=== PATIENT | female | born 1995 | race Two or more races ===

== ENCOUNTER 2025-03-13 07:12 | Inpatient (IN) ==
--- NOTE | 2025-03-02 12:44 | Anesthesiology Consultation ---
Date of Service March 02, 2025 Assessment & Plan (1) Encounter for pre-operative examination: Chart Review Chart Review: entry level civil engineer initiated - Per PAT nursing interview- patient is requesting toddler stay in the hospital as they do not have childcare- will leave to OB and OB floor discretion (both [facility] OB office and OB floor nurses were informed) -Infectious Disease screening: Per PAT nursing assessment on 03/02/25. No known infectious disease contacts in past 10 days or current infectious disease symptoms. No recent travel outside the country. History Surgery Operation Date: 03/13/25 07:30 Proposed Procedures p Section (Delivery of Baby Through Abdominal Incision) - Cristina Meier MD, FACOG Height/Weight Height: 4 ft 11 in Weight: 58.831 kg Allergies Allergy/AdvReac Type Severity Reaction Status Date / Time No Known Allergies Allergy Verified 03/02/25 11:52 Medications Home Medications Medication Instructions Recorded Confirmed Last Taken vitamin with calcium 1 tab PO DAILY #90 tabs 01/05/25 03/02/25 Unknown no.72-iron 27 mg-folic acid 1 mg tablet ( Plus (calcium carbonate)) Past Medical History Medical History History of chicken pox (2006) Vegan diet no meat products Past Family History Family History Other No family history of adverse response to anesthesia Denies family history of Ovarian cancer Breast cancer Colorectal cancer Past Surgical History Surgical History S/P appendectomy S/P section x1 Social History Smoking Status: Never smoker Do You Dip or Chew Tobacco: No Hx Alcohol Use: No Hx Substance Use: No substance use type: does not use
--- NOTE | 2025-03-12 16:54 | History & Physical Report ---
Date of Service March 12, 2025 Assessment & Plan (1) growth restriction: Plan: IUP at 37 3/7weeks who meets criteria for IUGR presents for repeat LTCS the procedure and it's risks were reviewed with the patient and all questions answered to their satisfaction had concerns about anesthesia problems during last delivery. she had epidural and then spinal but neither were effective to do so they gave her ketamine. she will discuss further with anesthesiologist on day of . History of Present Illness Primary Care Provider: NO PCP Patient is a female EDC 03/29/25 who presents at 37 3/7 weeks for repeat LTCS because of IUGR. testing has been reassuring. prior LTCS as done for failure to progress. GBS -negative Allergies Allergy/AdvReac Type Severity Reaction Status Date / Time No Known Allergies Allergy Verified 03/12/25 11:43 Home Medications Medication Instructions Recorded Confirmed Type vitamin with calcium 1 tab PO DAILY #90 tabs 01/05/25 03/12/25 Rx no.72-iron 27 mg-folic acid 1 mg tablet ( Plus (calcium carbonate)) Patient History Medical History History of chicken pox (2006) Vegan diet no meat products Surgical History S/P appendectomy S/P section x1 Family History Other No family history of adverse response to anesthesia Denies family history of Ovarian cancer Breast cancer Colorectal cancer Social History Smoking Status: Never smoker Second Hand Exposure: No; Do You Dip or Chew Tobacco: No; Hx Alcohol Use: No Hx Substance Use: No Preferred Language: Greenlandic Communication Ability: Effective 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 marital status: marital status details: (27) Current Living Situation: Family and Significant Other Current Living Situation Comment: Lives with and daughter current occupational status: unemployed current occupation: Homemaker How many Children do You have: 1 Feels Safe at Home: Yes Assistive Devices: None Review of Systems All systems reviewed & are unremarkable except as noted in HPI & below Physical Exam Constitutional: WD/WN, vitals as above Respiratory: normal respiratory effort, lungs clear to auscultation Cardiovascular: RRR, no murmur, no edema Psychiatric: A+Ox3, euthymic affect Genitourinary: OB Exam Abdomen: + fundal height (36), + vertex and + irregular contractions OB Exam Monitor Tracing: + external FHT monitor used, + external uterine monitor used, + category I and + normal FHT variability Coding Level of Care Code 11347 INT INP/OBS CARE 40MIN Diagnoses growth restriction
[2025-03-13] MEDS ORDERED: LACTATED RINGER'S 1,000 ML IV SCH ×3 (07:30→12:00)
[2025-03-13 07:50] LABS: Hematocrit (blood only) 37.7 % (37.0-47.0); Hemoglobin 13.2 g/dl (12.0-16.0); Mean Corpuscular Hemoglobin 30.7 pg (25.0-34.0); Mean Corpuscular Volume 87.7 fL (80.0-100.0); Mean Platelet Volume 11.7 fL (9.4-12.4); Platelet Count 232 K/uL (130-400); RDW Coefficient of Variation 14.2 % (11.5-14.5); White Blood Count 15.62 K/ul (4.8-10.8)
[2025-03-13] MEDS ORDERED: DEXAMETHASONE SOD INJ 4 MG/ML VIAL ONE (08:07)
[2025-03-13] MEDS ORDERED: fentaNYL citrate PF 100 MCG/2 ML VIAL ONE (08:07)
[2025-03-13] MEDS ORDERED: MoRPHine SULFATE PF 1 MG/ML 10 ML AMP/VIAL ONE (08:07)
[2025-03-13] MEDS ORDERED: ONDANSETRON INJ 2 MG/ML 2 ML VIAL ONE (08:07)
[2025-03-13] MEDS ORDERED: OXYTOCIN 10 UNITS/ML VIAL ONE (08:07)
[2025-03-13] MEDS ORDERED: PHENYLEPHRINE HCL 25 MG/250 ML NSS IV ONE (08:07)
[2025-03-13] MEDS: LACTATED RINGER'S 1,000 ML IV SCH (08:45)
[2025-03-13] MEDS: ACETAMINOPHEN 500 MG TAB PO SCH (08:46)
--- NOTE | 2025-03-13 09:17 | History & Physical Bridge Note ---
Date of Service March 13, 2025 History & Physical Bridge Note I have examined the patient, reviewed the History & Physical and in the interval since the performance of the History & Physical I have noted the following changes of clinical significance: no changes noted
--- NOTE | 2025-03-13 09:17 | Post Operative Brief Note ---
Immediate Post Op Note Date of Surgery March 13, 2025 Pre & Post Diagnosis Operation Date: 03/13/25 Pre-OP Dx: IUP at 37 4/7 weeks, IUGR, prior LTCS Post-Op Dx: same plus delivery of viable girl I identified the patient and participated in the time-out.: Yes Procedure Repeat Low transverse section Operation Date: 03/13/25 09:05 <No data on this case meets the specified criteria> Surgeon Cristina Meier MD, FACOG Wire Frame Maker Tricia Ptety RN Quantitative Blood Loss (QBL) 227 Findings Consistent with Post-Op Diagnosis gravid uterus , normal tubes and ovaries bilaterally Specimens Specimen Description: placenta to hold Drains Wick Catheter Anesthesia Type Spinal Complications none Disposition Accompanied Patient To Recovery: Yes Disposition: L&D
[2025-03-13] MEDS: CITRIC ACID/SODIUM CITRATE 15 ML UDC PO SCH (10:01)
[2025-03-13] MEDS: ceFAZolin 2,000 MG in SYRINGE 0 ML IV SCH (10:01)
[2025-03-13] MEDS ORDERED: NALOXONE HCL 0.08 MG in SYRINGE 1.8 ML IV PRN (10:03)
[2025-03-13] MEDS ORDERED: NALBUPHINE HCL INJ 10 MG/ML AMP IV PRN (10:03)
[2025-03-13] MEDS ORDERED: NALOXONE HCL 0.4 MG/1 ML VIAL/CARP IV PRN (10:03)
[2025-03-13] MEDS ORDERED: LACTATED RINGER'S 500 ML IV PRN (10:03)
[2025-03-13] MEDS ORDERED: PROMETHAZINE 6.25 MG/50.25 ML BAG IV PRN (10:03)
[2025-03-13] MEDS ORDERED: NALOXONE HCL 1 MG in SODIUM CHLORIDE 0.9% 1,000 ML IV PRN (10:03)
[2025-03-13] MEDS ORDERED: diphenhydrAMINE 50 MG/ML VIAL IV PRN (10:03)
[2025-03-13] MEDS ORDERED: ePHEDrine sulfate 50 MG/ML AMP IV PRN (10:03)
[2025-03-13] MEDS ORDERED: MoRPHine SULFATE PF 1 MG/ML 10 ML AMP/VIAL INT SPINAL ONE (10:03)
[2025-03-13] MEDS ORDERED: HYDROmorphone INJ 0.5 MG/0.5 ML SYR IV PRN (10:03)
[2025-03-13] MEDS ORDERED: SODIUM CHLORIDE 0.9% 1,000 ML IV SCH (10:15)
[2025-03-13] MEDS ORDERED: DC INTRASPINAL MORPHINE SCH (10:15)
[2025-03-13] MEDS ORDERED: NO NARCOTICS OR SEDATIVES SCH (10:15)
[2025-03-13] MEDS: KETOROLAC 30 MG/ML VIAL ONE (11:44)
[2025-03-13] MEDS ORDERED: CALCIUM CARBONATE 500 MG CHEWABLE TAB PO PRN (11:57)
[2025-03-13] MEDS ORDERED: MAGNESIUM HYDROXIDE SUSP 30 ML UDC PO PRN (11:57)
[2025-03-13] MEDS ORDERED: BENZOCAINE 20% SPRY 85 APPLN/85 GM CAN EXT PRN (11:57)
[2025-03-13] MEDS ORDERED: SENNA 8.6 MG TAB PO PRN (11:57)
[2025-03-13] MEDS ORDERED: HYDROCORTISONE ACETATE 25 MG SUPP PR PRN (11:57)
[2025-03-13] MEDS ORDERED: DIPHTHER/TETAN/PERTUS Vaccine (Tdap, Adol/Adult) 0.5mL IM ONE (11:57)
[2025-03-13] MEDS ORDERED: KETOROLAC 30 MG/ML VIAL IV SCH (12:00)
--- NOTE | 2025-03-13 12:01 | Anesthesiology Progress Note ---
Date of Service March 13, 2025 Anesthesia Post Procedure Vital Signs Vital Signs: Temp Pulse Resp BP Pulse Ox O2 Del Method 03/13/25 11:59 90 100 03/13/25 11:54 94 H 100 03/13/25 11:50 94 H 18 100 03/13/25 11:50 82 105/56 L 03/13/25 11:49 86 100 03/13/25 11:44 82 100 03/13/25 11:40 94 H 20 100 03/13/25 11:40 70 106/59 L 03/13/25 11:39 74 100 03/13/25 11:34 78 100 03/13/25 11:30 36.4 C L 20 Room Air 03/13/25 11:29 83 111/60 100 03/13/25 07:30 36.8 C 20 03/13/25 07:29 20 03/13/25 07:29 36.6 C 20 03/13/25 07:28 98 H 105/60 Pain Intensity Right Abdomen: Pain Intensity: 1 Transfer of Care Handoff Completed per policy Notes Mental Status: alert / awake / arousable and participated in evaluation Patient Amnestic to Procedure: Yes Nausea / Vomiting: adequately controlled Pain: adequately controlled Airway Patency, RR, SpO2: stable & adequate BP & HR: stable & adequate Hydration State: stable & adequate Neuraxial Anesthesia: was administered and sensory block is resolving Anesthetic Complications: no major complications apparent and Pt Satisfied with anesthetic care
[2025-03-13] MEDS: OXYTOCIN 20 UNITS/LR 1,002 ML IV SCH (12:10)
[2025-03-13] MEDS: MoRPHine SULFATE 2 MG/ML CARP IV PRN (13:27)
[2025-03-13] MEDS: SIMETHICONE 80 MG CHEW PO SCH (13:28)
--- NOTE | 2025-03-13 16:45 | Operative Report ---
Post Operative Report Pre & Post Diagnosis Operation Date: 03/13/25 09:05 Pre-Op Diagnosis: 1. Term 2. Previous c/section 3. Desires repeat Post-Op Diagnosis: Same I identified the patient and participated in the time-out.: Yes Procedure Operation Date: 03/13/25 09:05 Actual Procedures p Section with the of a live female child at 1044. - Cristina Meier MD, FACOG Surgeon Cristina Meier MD, FACOG Co Founder And Chairman Tricia Petty RN Quantitative Blood Loss (QBL) 227 Findings Consistent with Post-Op Diagnosis Uterus is gravid and consistent with a term in size. Bilateral ovaries and fallopian tubes are grossly normal Specimens placenta to hold Drains Wick catheter to straight drainage, clear urine at the end of the case. Anesthesia Type Spinal Complications none Disposition Accompanied Patient To Recovery: Yes Disposition: L&D Indications Patient is a 29-year-old 2 para 1-0-0-1 female EDC 03/30/[birth year]25 who presents at 37-4/7 weeks for repeat section because of severe IUGR. testing otherwise has been reassuring. Prior section was done because of failure to progress. Description of Procedure After the patient received adequate subarachnoid block she was prepped and draped in usual sterile fashion. A low transverse skin incision was made through her prior scar and carried to fascia with the same scalpel. The fascial incision was then extended with Elizabeth scissors, the edges were then grasped with Kristy clamps and the underlying rectus muscles bluntly sharply dissected off of the overlying fascia. The peritoneum was then entered bluntly. The bladder was then taken down off the anterior surface of the uterus and placed behind the bladder blade. The lower uterine segment was entered with a scalpel and extended transversely by stretching the incision in an a caudad and cephalad direction. The was delivered from the vertex presentation after rupturing membranes for clear fluid. This was complex with moderate fundal pressure. After the head was delivered the rest of the infant delivered easily. She was vigorous crying and moving all 4 limbs. Cord was clamped and cut. The was then handed off to Dr. Werner he was in attendance as the assembler leather goods. The placenta was then manually extracted. The uterine cavity was cleared of some retained membranes particularly in the fundus of the uterus. A final sweep of the uterine cavity revealed no further remaining tissue. The uterus was then closed in 2 layers in a running locking imbricating fashion with 0 Monocryl. Hemostasis was noted to be excellent. The posterior cul-de-sac was suctioned for small amount of fluid. The uterine incision was examined once more and continue to have excellent hemostasis. The uterus was then placed back inside the abdominal cavity. The gutters were examined and found to be free of any clot or fluid. A clot was removed from the anterior cul-de-sac. The uterine incision continued to have excellent hemostasis. The rectus muscle were brought together in the midline with individual stitches of 0 Monocryl. Fascia was closed in a running fashion with 0 Vicryl. After irrigating the subcutaneous layer, the skin edges were reapproximated with a subcuticular stitch of 4-0 Vicryl. Patient tolerated the procedure well was stable arrival in labor and delivery. I attest to the content of the Intraoperative Record and any orders documented therein. Any exceptions are noted below. OB Procedure Charges [id number]
[2025-03-13] MEDS: ONDANSETRON INJ 2 MG/ML 2 ML VIAL IV PRN (18:09)
[2025-03-13] MEDS: KETOROLAC 30 MG/ML VIAL IV SCH (18:47)
[2025-03-13] MEDS: LACTATED RINGER'S 500 ML IV ONE (18:48)
[2025-03-13] MEDS: ACETAMINOPHEN 325 MG TAB PO SCH (18:48)
[2025-03-13] MEDS: DOCUSATE SODIUM 100 MG CAP PO SCH (20:42)
[2025-03-14] MEDS ORDERED: diphenhydrAMINE Capsule 25 MG CAP PO PRN (04:04)
[2025-03-14] MEDS ORDERED: PROMETHAZINE 12.5 MG/50.5 ML BAG IV PRN (04:04)
[2025-03-14] MEDS ORDERED: diphenhydrAMINE 50 MG/ML VIAL IV PRN (04:04)
[2025-03-14] MEDS ORDERED: HYDROmorphone INJ 0.5 MG/0.5 ML SYR IV PRN (04:04)
[2025-03-14] MEDS ORDERED: ONDANSETRON INJ 2 MG/ML 2 ML VIAL IV PRN (04:04)
[2025-03-14] MEDS ORDERED: CITRIC ACID/SODIUM CITRATE 15 ML UDC PO SCH (06:00)
--- NOTE | 2025-03-14 07:09 | Obstetrical Progress Note ---
Date of Service March 14, 2025 Assessment & Plan (1) Encounter for assessment: Plan: Patient is POD 1 s/p rLTCS and doing well - Eating well, voiding well, ambulating well - vitals reviewed and within normal limits - pain well controlled with analgesics - OOB, ambulation, diet progression as tolerated - Blood type: A+, GBS neg, rubella immune - Plan to discharge tomorrow - After discharge, 6 week follow up with [facility] Admission and Anticipated Discharge Date Admission Date: March 13, 2025 Supervising Physician Co-Signing Physician Notes Resident Physician Supervision Note: I interviewed and examined the patient. Discussed with Dr. Huffman and agree with findings and plan as documented in the note. Any exceptions or clarifications are listed here: [None] Documented By: Cristina Meier MD, FACOG Subjective 29 yo post-operative day 1 s/p rLTCS Ambulation: ambulating normally Voiding: no voiding problems Passing Gas:: Yes Diet Tolerance:: regular diet Lochia:: Small Feeding Type:: breast feeding Current Pain Level: 5.5/10 Resting comfortably this AM in NAD. Denies NEVES, CP, SOB, N/V/D, LE pain/swelling. Physical Exam Physical Exam: General: patient resting comfortably, NAD, non-toxic in appearance, answers questions appropriately. Skin: warm, dry, intact HEENT: NC/AT, anicteric sclera, conjunctiva without injection, moist mucus membranes. Heart: +S1/S2, regular, no m/r/g Lungs: equal air entry bilaterally, no rales/rhonchi/wheezes Abd: +BS, soft, NT/ND, uterine fundus firm at umbilicus, caesarean incision C/D/I. Ext: warm, no clubbing/cyanosis or edema, Jaswinder's neg. Neuro: nonfocal, speech intact, no facial droop, moving all extremities. Results & Data Vital Signs (Past 12 Hours) Vital Signs Temp Pulse Pulse Resp BP Pulse Ox O2 Del Method 03/14/25 04:00 36.9 C 88 18 92/56 L 99 Room Air 03/14/25 03:27 18 97 03/14/25 02:04 18 97 03/14/25 01:16 16 97 03/14/25 00:45 18 98 03/13/25 23:50 36.9 C 88 18 96/58 L 99 Room Air 03/13/25 22:00 16 98 03/13/25 21:15 18 99 03/13/25 19:55 Room Air 03/13/25 19:55 37 C 74 18 104/66 99 Room Air Resident Activity Tracking Resident Involvement: Resident Care Provided Care Provided: OB Delivery
[2025-03-14 07:25] LABS: Basophils # (auto) 0.05 K/uL (0.00-0.20); Basophils % (auto) 0.3 %; Eosinophils # (auto) 0.13 K/uL (0.00-0.50); Eosinophils % (auto) 0.7 %; Hematocrit (blood only) 32.2 % (37.0-47.0); Hemoglobin 11.1 g/dl (12.0-16.0); Immature Granulocytes # (auto) 0.15 K/uL (0.01-0.20); Immature Granulocytes % (auto) 0.8 %; Lymphocytes # (auto) 2.91 K/uL (1.20-3.40); Lymphocytes % (auto) 15.6 %; Mean Corpuscular Hemoglobin 30.9 pg (25.0-34.0); Mean Corpuscular Hgb Conc 34.5 g/dL (32.0-36.0); Mean Corpuscular Volume 89.7 fL (80.0-100.0); Mean Platelet Volume 11.7 fL (9.4-12.4); Monocytes # (auto) 1.58 K/uL (0.11-0.59); Monocytes % (auto) 8.5 %; Neutrophils % (auto) 74.1 %; Platelet Count 223 K/uL (130-400); RDW Coefficient of Variation 13.8 % (11.5-14.5); RDW Standard Deviation 45.1 fL (36.4-46.3); Red Blood Count 3.59 M/uL (4.20-5.40); White Blood Count 18.62 K/ul (4.8-10.8)
[2025-03-14] MEDS: PRENATAL VITAMIN 1 TAB PO SCH (09:10)
[2025-03-14] MEDS: FERROUS SULFATE 325 MG TAB PO SCH (09:11)
[2025-03-14] MEDS: oxyCODONE HCL IR 5 MG TAB (IMMEDIATE RELEASE) PO PRN (10:41)
[2025-03-14] MEDS ORDERED: KETOROLAC 30 MG/ML VIAL IV PRN (11:57)
[2025-03-14] MEDS: IBUPROFEN 600 MG TAB PO SCH (13:04)
[2025-03-14] MEDS: bisacodyL 5 MG TABEC PO SCH (19:59)
[2025-03-15 07:15] LABS: Hematocrit (blood only) 35.1 % (37.0-47.0); Hemoglobin 11.8 g/dl (12.0-16.0)
--- NOTE | 2025-03-15 07:47 | Obstetrical Progress Note ---
Date of Service March 15, 2025 Assessment & Plan (1) Encounter for assessment: 29 [facility] -Meeting all pp milestones. notes some pain control issues overnight but currently managed. -Rh+/rubella immune/ -f/u 6 weeks for appt. Plan to dc tomorrow for pain control but says if feels well, would consider dc tlater today Subjective Ambulation: ambulating normally Voiding: no voiding problems Passing Gas:: Yes Diet Tolerance:: regular diet Lochia:: Small Feeding Type:: breast feeding Had a little more pain this AM and got meds which helped Review of Systems Denies fevers, chills, n/v, NEVES, CP, SOB Physical Exam Constitutional WD/WN, vitals as above no acute distress Respiratory normal respiratory effort, lungs clear to auscultation Cardiovascular RRR, no murmur, no edema Gastrointestinal (Abdomen) Percussion/Palpation: abdomen soft; abdomen nontender fundus firm at umbilicus and NT, incision c/d/i Musculoskeletal BLE symmetric, nonerythematous, nontender Results & Data Vital Signs (Past 12 Hours) Vital Signs Temp Pulse Pulse Resp BP Pulse Ox O2 Del Method 03/15/25 00:35 97.7 F 86 18 107/75 96 Room Air 03/14/25 20:00 97.5 F L 92 H 18 100/66 97 Room Air
[2025-03-15] MEDS: IBUPROFEN 600 MG TAB PO PRN (11:56)
[2025-03-15] MEDS ORDERED: bisacodyL 10 MG SUPP PR PRN (11:57)
[2025-03-15] MEDS: ACETAMINOPHEN 325 MG TAB PO PRN (17:09)
--- NOTE | 2025-03-16 06:54 | Obstetrical Progress Note ---
Date of Service March 16, 2025 Assessment & Plan (1) Encounter for assessment: Plan: Patient is POD 3 s/p rLTCS and doing well - Eating well, voiding well, ambulating well - vitals reviewed and within normal limits - pain well controlled with analgesics - OOB, ambulation, diet progression as tolerated - Blood type: A+, GBS neg, rubella immune - Plan to discharge today - After discharge, 6 week follow up with [facility] Admission and Anticipated Discharge Date Admission Date: March 13, 2025 Supervising Physician Co-Signing Physician Notes Resident Physician Supervision Note: I interviewed and examined the patient. Discussed with Dr. Huffman and agree with findings and plan as documented in the note. Any exceptions or clarifications are listed here: POD3 s/p rLTCS, doing well. DC home Documented By: Kellie Zamora MD Subjective 29 yo post-operative day 3 s/p rLTCS Ambulation: ambulating normally Voiding: no voiding problems Passing Gas:: Yes Diet Tolerance:: regular diet Lochia:: Small Feeding Type:: breast feeding Current Pain Level: 3/10 Resting comfortably this AM in NAD. Denies NEVES, CP, SOB, N/V/D, LE pain/swelling. Physical Exam Physical Exam: General: patient resting comfortably, NAD, non-toxic in appearance, answers questions appropriately. Skin: warm, dry, intact HEENT: NC/AT, anicteric sclera, conjunctiva without injection, moist mucus membranes. Heart: +S1/S2, regular, no m/r/g Lungs: equal air entry bilaterally, no rales/rhonchi/wheezes Abd: +BS, soft, NT/ND, uterine fundus firm at umbilicus, caesarean incision alea n w/o erythema or discharge Ext: warm, no clubbing/cyanosis or edema, Jaswinder's neg. Neuro: nonfocal, speech intact, no facial droop, moving all extremities. Results & Data Vital Signs (Past 12 Hours) Vital Signs Temp Pulse Pulse Resp BP Pulse Ox O2 Del Method 03/16/25 02:10 36.8 C 96 H 18 112/76 95 Room Air 03/15/25 20:00 36.8 C 98 H 18 108/76 97 Room Air Resident Activity Tracking Resident Involvement: Resident Care Provided Care Provided: OB Delivery
[2025-03-16 08:26] VITALS: BP 115/77; RESP 16; TEMP 98.6; O2SAT 97
[2025-03-16 10:29] VITALS: PULSE 97
--- NOTE | 2025-03-17 14:42 | Discharge Summary ---
Date of Service March 17, 2025 Admission HPI Per Admitting Provider Patient is a female EDC [birth year] who presents at 37 3/7 weeks for repeat LTCS because of IUGR. testing has been reassuring. prior LTCS as done for failure to progress. GBS -negative Admission Exam (Per Admitting) Constitutional WD/WN, vitals as above Respiratory normal respiratory effort, lungs clear to auscultation Cardiovascular RRR, no murmur, no edema Psychiatric A+Ox3, euthymic affect Genitourinary OB Exam Abdomen: + fundal height (36), + vertex and + irregular contractions OB Exam Monitor Tracing: + external FHT monitor used, + external uterine monitor used, + category I and + normal FHT variability Discharge Data Consultations 03/13/25 07:21 Consult Anesthesiology Stat Procedures Performed Operation Date: 03/13/25 09:05 Actual Procedures p Section with the of a live female child at 1044. - Cristina Meier MD, [facility] [place] Hospital Course (1) Encounter for assessment: Patient is POD 3 s/p rLTCS and doing well - Eating well, voiding well, ambulating well - vitals reviewed and within normal limits - pain well controlled with analgesics - OOB, ambulation, diet progression as tolerated - Blood type: A+, GBS neg, rubella immune - Plan to discharge today - After discharge, 6 week follow up with [facility] Discharge Plan Discharge Items Patient Disposition: Home - Self-Care Reason For Visit: History of Section, Intrauterine Growth R Discharge Diagnosis: section Activity: Per Instructions section Non-emergency contact: Child Support Investigator Call non-emergency contact if: you have any medication questions, your pain is not controlled, your temperature is above 101, your wound has increased redness, your wound has increased drainage and your wound pain has increased Follow-up/Referrals: PCP,NO [Primary Care Provider] - Diet: Vegetarian (Lacto-Ovo) Addtl Attending Provider Instructions: ACTIVITY RECOMMENDATIONS: * Gradual return to full activity over the next 2-3 weeks. * No lifting - nothing heavier than baby over the next 2-3 weeks. * Do not engage in vigorous exercise, sexual activity or sports until cleared by your physician. * Do not drive or operate any motorized equipment until cleared by your physician. * You may shower/bathe daily. MEDICATIONS: For discomfort or pain, you may use Acetaminophen (Tylenol), Ibuprofen (Advil), or Naproxen (Aleve) following the package directions. For constipation you may use Colace following the package directions. BREAST CARE: If you are not breast feeding: * Wear a supportive bra 24 hours a day for one to two weeks. * Avoid stimulating your breasts and nipples as much as possible during the first few weeks after delivery. * When taking a shower, have the warm water hit your back, not breasts. * When your breasts feel full, apply ice packs. Usually three to four times a day helps ease the discomfort. * Take a mild pain medication (Tylenol / Motrin) when you are uncomfortable. If breast feeding: * Use breast milk to lubricate nipples. Lansinoh cream may be used for sore nipples. You do not need to remove cream prior to breast feeding. If using a different brand of cream, check the label for directions regarding removal of cream prior to nursing. * Wear a supportive bra. * If having problems with breasts or breast feeding, call a mergers and acquisitions consultant or your health care provider. SPECIAL CARE INSTRUCTIONS: When you are discharged from the hospital, it is important for you to follow the instructions listed below: * During the first week at home, you should be able to care for yourself and your baby. In addition, the usual light household activities are encouraged. * Limit your activities to the way you feel. Do not try to clean the house or move furniture. Be sensible. * If you actively engage in sports and have done so up until the time of your delivery, you may resume these activities as soon as you feel able. This may take up to one month or even longer. Use good judgment. * Continue to take your vitamins for at least six weeks after the of your baby. * Your diet need not be limited unless you were on a special diet before your delivery. Breast-feeding mothers need around 2500 calories per day and at least 64-80 ounces of fluid per day (8 to 10 glasses). * You should eat foods from the four major food groups. Crash diets or fad diets are to be avoided. Eating lean meats, fresh fruits and vegetables, low-fat dairy products, high fiber foods and a regular exercise program, will help you get back to your pre- weight without putting your health at risk. * Constipation is sometimes a problem after delivery. Take a mild laxative as needed. If breast feeding, Milk of Magnesia is acceptable to use. You may use a suppository or Fleets enema. * A daily shower or tub bath is suggested. Wash incision daily with warm soapy water and pat dry. It doesn't need to be covered unless drainage is present. * A bloody vaginal discharge will usually continue until around four weeks . A small amount of bleeding may continue for as long as six weeks. Vaginal discharge changes from the bright red bleeding after delivery to pink then brownish and finally yellowish-pink before becoming white and disappearing. * Bleeding may increase with activity. Your first period may come in 4-8 weeks. If you are breast feeding, your period may be delayed even longer. * [place] (sex) can begin whenever both you and your partner feel comfortable and do not have any form of genital infection. It is recommended that you wait at least six weeks for internal and external healing to occur. If you have questions, please talk to your health care practitioner. A condom should be used to prevent infection and . * Foreplay, gentle intercourse and lubrication is very important the first se veral times to prevent pain. A water-based lubricant such as K-Y jelly or Astroglide may be used. * If you have RH negative blood and your baby is RH positive, you will receive RHOGAM by injection prior to discharge. The nurse will give you a card to keep with you that has the date and place that you received RHOGAM after delivery. * During your care, you had a Rubella screen done to check for the presence of rubella antibodies in your blood. If your test was negative, you will receive a Rubella vaccine prior to discharge. This vaccine may cause a fever, soreness at the injection site and flu-like symptoms. If these symptoms persist, notify your health care practitioner. is not advised for one month after a Rubella vaccine. * Verbalizes understanding of car seat law as reviewed with patient nursing. * Car Seat hand-out given and reviewed with patient by nursing. * Shaken baby information reviewed with patient by nursing. Call you doctor if: * Heavy bleeding (saturating several pads an hour) or passing clots the size of your fist. * A fever >101 degrees F (38.3 degrees C) on two occasions four hours apart and/or chills. * Unusual pain in the pelvic or vaginal areas. * Call the doctor for any increased redness, drainage or swelling around the incision and any pain unrelieved by prescribed pain medication. * "Baby Blues" lasting longer than two weeks. If you have any questions or concerns, call your health care practitioner at . FOLLOW UP VISIT: * Please call the office at to schedule a 6 week examination. It is important you keep this appointment. It is important for you to make arrangements for either yearly or twice yearly check-ups thereafter. Pending Studies at Discharge: No Stand-Alone Forms: My [facility] [employer], Smoking Cessation Medications and DC Order Prescriptions: New oxycodone 5 mg Tablet 5 - 10 mg PO Q3H PRN (Reason: pain) Qty: 14 0RF Continued Plus (calcium carb) 27 mg iron- 1 mg tablet 1 tab PO DAILY Qty: 90 2RF Discharge Orders: Discharge Order (Routine); Ordered 03/16/25 Ordered By: Everardo Borrero/Other Patient Handouts: DVT in , Understanding Depression Admission Data Admit Date/Time: 03/13/25 07:12 Attending Provider: Cristina Meier Admit Provider: Cristina Meier Primary Care Provider: PCP,NO Other Providers: Everardo Huffman; Kellie Zamora Other Interventions: Discharge Summary Assessment (RN) Last Done: 03/16/25 10:27 Supervising Physician Co-Signing Physician Notes Resident Physician Supervision Note: I interviewed and examined the patient. Discussed with Dr. Huffman and agree with findings and plan as documented in the note. Any exceptions or clarifications are listed here: POD3 s/p rLTCS, doing well. DC home Documented By: Kellie Zamora MD Coding Level of Care Code 69374 IN/OBS DISCH 30 MIN/LESS Diagnoses Encounter for assessment Z39.2
== END 2025-03-16 12:50 | disposition home or self-care (01) | DRG 788 ==
LOC: 4S1 07:12 → 4E2 12:42 → EDSTATUS 03-23 08:50
DX: Z37.0 Single live birth; O34.211 Maternal care for low transverse scar from previous cesarean delivery; O36.5930 Maternal care for other known or suspected poor fetal growth, third trimester, not applicable or unspecified; Z3A.37 37 weeks gestation of pregnancy